=== PATIENT | female | born 1995 | race African-American/Black ===

== ENCOUNTER 2020-02-29 09:38 | Emergency (ER) | payer MEDICAID, SELFPAY ==
[2020-02-29 09:42] VITALS: BP 138/87; PULSE 103; RESP 18; TEMP 36.8; O2SAT 100
[2020-02-29 10:17] LABS: Basophils Percent Auto 0.2 % (0.2-1.2); Eosinophils Absolute Auto 0.2 K/mm3 (0-0.3); Eosinophils Percent Auto 0.9 % (0-4.4); Immature Granulocyte Percent A 0.6 % (0-0.5); Lymphocytes Absolute Auto 2.12 K/mm3 (0.9-3.2); Lymphocytes Percent Auto 12.5 % (18.3-44.2); Mean Corpuscular HGB Conc 31.3 g/dl (32-36); Mean Corpuscular Hemoglobin 25.5 pg (26-34); Mean Corpuscular Volume 81.6 fl (80-100); Mean Platelet Volume 11.9 fl (7.4-10.4); Monocytes Absolute Auto 0.7 K/mm3 (0.1-0.6); Monocytes Percent Auto 3.8 % (2.6-8.5); Neutrophils Absolute Auto 13.8 K/mm3 (1.3-6.7); Platelet Count Result 228 k/mm3 (150-375); Red Blood Count 3.92 M/mm3 (4.2-5.4); Red Cell Distribution Width 19.9 % (11.5-14.5); White Blood Count 16.9 K/mm3 (4.5-10.0)
[2020-02-29 10:24] LABS: Add Urine Microscopic? YES; Appearance Urine Cloudy (Clear); Bilirubin Urine Negative (Negative); Blood Urine 3+ (Negative); Color Urine Red (Yellow); Glucose Urine UA Negative (Negative); Ketones Urine Negative (Negative); Leukocyte Esterase Ur 2+ LEU/UL (Negative); Mucus Urine Few /lpf; Nitrate Urine Negative (Negative); Protein Urine 3+ mg/dL (Negative); RBC Urine >75 /hpf (0-2); Specific Grav Ur 1.016 (1.001-1.035); Squamous Epithelial Cell Urine Many /hpf (Few); Urobilinogen Urine Negative mg/dL (<2.0); WBC Urine >75 /hpf
[2020-02-29 10:25] VITALS: BP 108/58; PULSE 78
[2020-02-29 10:26] VITALS: BP 112/68; BP 115/65; PULSE 80; PULSE 87
--- NOTE | 2020-02-29 11:03 | ED.PREGNANCY ---
HPI - General Chief complaint: Vaginal Bleeding Stated complaint: , bleeding Time Seen by Provider: 02/29/20 10:32 History of Present Illness HPI Narrative: Patient presents for gush of blood and fluid from her vagina today. She suspects that she is since her last period was 6 weeks ago, on January 18. She is G6, P4 Ab1. She had one miscarriage before. Her pelvic cramping is a 5 out of 10. 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 She has not been sick otherwise. Complaint: vaginal bleeding Onset (ago): hour(s) Pain Consistency: constant Location: pelvis Severity: moderate Quality: Cramping Relieving factors: none Exacerbating factors: none Associated symptoms: vaginal bleeding Vaginal discharge: felt water broke Vaginal bleeding: heavy Related Data Allergies Allergy/AdvReac Type Severity Reaction Status Date / Time No Known Allergies Allergy Verified 02/29/20 09:51 Review of Systems Review of Systems: Narrative: CONSTITUTIONAL: Denies fever, chills, or sweats. EYES: Denies visual changes, redness, or discharge. ENT: Denies rhinorrhea, congestion, sore throat, or otalgia. CARDIOVASCULAR: Denies chest pain, palpitations, or edema. RESPIRATORY: Denies cough or dyspnea. GASTROINTESTINAL: Denies abdominal pain, nausea, vomiting, or diarrhea. GENITOURINARY: Denies dysuria or hematuria. SKIN: Denies rash or itching. MUSCULOSKELETAL: Denies back pain, joint pain, or myalgia. NEUROLOGIC: Denies headache, numbness, or weakness. PSYCHIATRIC: Denies anxiety or depression. All systems reviewed & are unremarkable except as noted in HPI and below PMFSH Social History Social History (Updated 02/29/20 @ 11:26 by Quita Montana MD) Smoking status: Never smoker Alcohol intake: current Substance use: never Gender identity (if verbalized by the patient): Female Exam Narrative: Exam Narrative: GENERAL: Well-appearing, well-nourished, and in no acute distress. HEAD: Normocephalic, atraumatic. EYES: PERRLA and EOMI. ENT: Nares clear, no rhinorrhea or epistaxis. Mucous membranes moist. NECK: Supple. CHEST: Clear to auscultation. No respiratory distress. HEART: Regular rate and rhythm. No murmur heard. Normal peripheral pulses. ABDOMEN: Soft, nontender, nondistended, normal active bowel sounds. EXTREMITIES: Normal range of motion. No edema. SKIN: Warm, dry, no rash. NEURO: No focal deficits. Alert and oriented x3. PSYCH: Normal mood and affect. : External Female Exam: normal external appearance Speculum Exam - Vagina: normal appearance of the vagina and vaginal bleeding (Scant) Course Course Emergency Course: The temperature recorded at 103 seems erroneous since the patient does not report any fever. The pulse of 18 was probably meant to be 81 and has been stable since she has been here. Vital Signs Vital signs: Vital Signs Temperature 103 F H 02/29/20 09:42 Pulse Rate 18 L 02/29/20 09:42 Respiratory Rate 18 02/29/20 09:42 Blood Pressure 138/87 02/29/20 09:42 Pulse Oximetry 100 02/29/20 09:42 Temperature 103 F H 02/29/20 09:42 Pulse Rate 87 02/29/20 10:26 Respiratory Rate 18 02/29/20 09:42 Blood Pressure 115/65 02/29/20 10:26 Pulse Oximetry 100 02/29/20 09:42 MDM - OB/Uterine Contractions Lab Data Result diagrams: 02/29/20 09:57 Labs: Lab Results 02/29/20 02/29/20 02/29/20 Range/Units 09:57 09:57 09:57 WBC 16.9 H (4.5-10.0) K/mm3 RBC 3.92 L (4.2-5.4) M/mm3 Hgb 10.0 L (12.0-15.0) g/dL Hct 32.0 L (37.0-47.0) % MCV 81.6 (80-100) fl MCH 25.5 L (26-34) pg MCHC 31.3 L (32-36) g/dl RDW 19.9 H (11.5-14.5) % Plt Count 228 (150-375) k/mm3 MPV 11.9 H (7.4-10.4) fl Immature Gran % (Auto) 0.6 H (0-0.5) % Neut % (Auto) 82.0 H (45.5-73.1) % Lymph % (Auto) 12.5 L (18.3-44.2) % [place] % (Auto) 3.8 (2.6-8.5) % Eos % (Auto) 0.9 (0-4.4) % Baso % (Auto) 0.2 (0.2-1.2)
[2020-02-29] MEDS: IBUPROFEN 600 MG TABLET PO (11:36)
[2020-02-29 12:10] VITALS: BP 103/58; PULSE 87; RESP 18; TEMP 36.7; O2SAT 99
== END 2020-02-29 12:15 | disposition home or self-care (01) ==
PROVIDERS: Emergency Provider Emergency Medicine
DX: O03.9 Complete or unspecified spontaneous abortion without complication (principal)
CPT/HCPCS: 36415; 81001; 81025; 84702; 85025; 85461; 87086; 99284; A9270

== ENCOUNTER 2020-03-02 08:10 | Day surgery (SDC) | payer MEDICAID, SELFPAY ==
[2020-03-02] VITALS (10 sets, daily range): BP systolic 100–121; BP diastolic 53–73; PULSE 58–104; RESP 12–18; TEMP 36.9–37.4; O2SAT 97–99
--- NOTE | 2020-03-02 08:18 | ED.PREGNANCY ---
HPI - General Chief complaint: [employer] Stated complaint: Miscarriage Time Seen by Provider: 03/02/20 08:17 History of Present Illness HPI Narrative: Patient presents with her mother for miscarriage. She was seen here 2 days ago for possible miscarriage. She says her last menstrual period was January 18 which would make her about 5 weeks. There is a fetus still attached to the umbilical cord, between her legs. She has not yet delivered the placenta. Her pain is 6 out of 10. MD Complaint: contractions Onset (ago): hour(s) Pain Consistency: constant Location: pelvis Severity: moderate Quality: Cramping Related Data Allergies Allergy/AdvReac Type Severity Reaction Status Date / Time No Known Allergies Allergy Verified 03/02/20 08:20 Review of Systems Review of Systems: Narrative: CONSTITUTIONAL: Denies fever, chills, or sweats. EYES: Denies visual changes, redness, or discharge. ENT: Denies rhinorrhea, congestion, sore throat, or otalgia. CARDIOVASCULAR: Denies chest pain, palpitations, or edema. RESPIRATORY: Denies cough or dyspnea. GASTROINTESTINAL: Denies abdominal pain, nausea, vomiting, or diarrhea. GENITOURINARY: Denies dysuria or hematuria. SKIN: Denies rash or itching. MUSCULOSKELETAL: Denies back pain, joint pain, or myalgia. NEUROLOGIC: Denies headache, numbness, or weakness. PSYCHIATRIC: Denies anxiety or depression. [facility] Social History Social History Smoking status: Never smoker Alcohol intake: current Substance use: never Gender identity (if verbalized by the patient): Female Exam Narrative: Exam Narrative: GENERAL: Well-appearing, well-nourished, and in no acute distress. Thin. HEAD: Normocephalic, atraumatic. EYES: PERRLA and EOMI. ENT: Nares clear, no rhinorrhea or epistaxis. Mucous membranes moist. NECK: Supple. CHEST: Clear to auscultation. No respiratory distress. HEART: Regular rate and rhythm. No murmur heard. Normal peripheral pulses. ABDOMEN: Soft, nontender, nondistended, normal active bowel sounds. EXTREMITIES: Normal range of motion. No edema. SKIN: Warm, dry, no rash. NEURO: No focal deficits. Alert and oriented x3. PSYCH: Normal mood and affect. Course Consultations Consultation #1: Call Dr. Molina, her OB, and he will call back when he is out of the OR. Dr. Barby Holt called back and will prepare to take the patient to the OR for D&C. Date: 03/02/20 Time: 08:22 Vital Signs Vital signs: Vital Signs Temperature 99.3 F 03/02/20 08:14 Pulse Rate 104 H 03/02/20 08:14 Respiratory Rate 18 03/02/20 08:14 Blood Pressure 121/72 03/02/20 08:14 Pulse Oximetry 98 03/02/20 08:14 Temperature 99.3 F 03/02/20 08:14 Pulse Rate 87 03/02/20 09:48 Respiratory Rate 18 03/02/20 09:48 Blood Pressure 101/62 03/02/20 09:48 Pulse Oximetry 99 03/02/20 09:48 MDM - OB/Uterine Contractions MDM Narrative Medical decision making narrative: The patient had a stillborn fetus of about 12 to 14 weeks. This does not correlate with the history of the last menstrual period being January 18. I suspect she had demise at that time, and her low hCG reflects a descending number. Dr. Barby Holt said the fetus was about 14 weeks, and took the patient to the OR for delivery of the placenta and any retained products. The patient's white count increased to 20,000, and so got IV antibiotics of Zosyn 1 dose. Her mother was able to accompany her to the operating department. She will be admitted for observation after that. Medical Records Attestation: I reviewed the patient's medical records. Lab Data Attestation: I reviewed the patient's lab results. Result diagrams: 03/02/20 08:38 03/02/20 08:38 Labs: Lab Results 03/02/20 03/02/20 03/02/20 Range/Units 08:38 08:38 08:38 WBC 20.3 H (4.5-10.0) K/mm3 RBC 3.55 L (4.2-5.4) M/mm3 Hgb 9.1 L (12.0-15
[2020-03-02] MEDS: MORPHINE SULFATE 2 MG/ML INJ IV PUSH (08:23)
[2020-03-02] MEDS: SODIUM CHLORIDE 0.9% IV 1,000 ML 150 ML IV CONT (08:24)
[2020-03-02] MEDS: MORPHINE SULFATE 4 MG/ML INJ IV PUSH (08:41)
[2020-03-02 08:43] LABS: Basophils Percent Auto 0.1 % (0.2-1.2); Eosinophils Absolute Auto 0.1 K/mm3 (0-0.3); Eosinophils Percent Auto 0.2 % (0-4.4); Hematocrit 29.2 % (37.0-47.0); Hemoglobin 9.1 g/dL (12.0-15.0); Immature Granulocyte Absolute 0.28 K/mm3 (0.00-0.031); Immature Granulocyte Percent A 1.4 % (0-0.5); Lymphocytes Absolute Auto 1.61 K/mm3 (0.9-3.2); Lymphocytes Percent Auto 7.9 % (18.3-44.2); Mean Corpuscular HGB Conc 31.2 g/dl (32-36); Mean Corpuscular Hemoglobin 25.6 pg (26-34); Mean Corpuscular Volume 82.3 fl (80-100); Mean Platelet Volume 12.2 fl (7.4-10.4); Monocytes Absolute Auto 1.2 K/mm3 (0.1-0.6); Monocytes Percent Auto 5.7 % (2.6-8.5); Neutrophils Absolute Auto 17.2 K/mm3 (1.3-6.7); Neutrophils Percent Auto 84.7 % (45.5-73.1); Platelet Count Result 205 k/mm3 (150-375); Red Blood Count 3.55 M/mm3 (4.2-5.4); Red Cell Distribution Width 19.6 % (11.5-14.5); White Blood Count 20.3 K/mm3 (4.5-10.0)
--- NOTE | 2020-03-02 08:45 | PC.NURSE ---
Pt states that chambers she used bathroom to urinate she passed fetus. male fetus the size of adult hand remains attached to mother by cord. placenta has not been delivered at this time. mother given Share folder. mother declines Share support group. Mother and family do not know at this time how they wish to proceed with remains. maintainability engineer has been contacted and given info. pt informed to remain npo.
[2020-03-02 08:55] LABS: Alanine Aminotransferase 10 U/L (4-35); Albumin Level 3.9 g/dL (3.5-5.1); Alkaline Phosphatase 102 U/L (38-126); Aspartate Amino Transferase 19 U/L (14-36); Bilirubin,Total 0.2 mg/dL (0.2-1.3); Blood Urea Nitrogen 10 mg/dL (7-17); Calcium 8.6 mg/dL (8.4-10.2); Carbon Dioxide 24 mmol/L (22-30); Chloride 103 mmol/L (98-107); Estimated CRCL calculation 126 ml/min; Estimated Glomerular Filt Rate > 60; Glucose 104 mg/dL (65-105); Potassium 3.4 mmol/L (3.4-5.0); Sodium 134 mmol/L (137-145)
--- NOTE | 2020-03-02 09:01 | PC.NURSE ---
Spoke with Roxanne at [employer] office. Notified of loss ~ 16-18 weeks.
--- NOTE | 2020-03-02 09:24 | P.HP_ITS ---
H&P: HPI History of Present Illness Chief complaint: Miscarriage Narrative: Tim Beck is a 24 year old female who is admitted after paasing an approximately 12 week demise. placenta remains. Review of Systems Review of Systems: All systems reviewed & are unremarkable except as noted in HPI and below [facility] Social History Social History Smoking status: Never smoker Alcohol intake: current Substance use: never Gender identity (if verbalized by the patient): Female Meds Home Medications and Allergies Home Medications Medication Instructions Recorded Confirmed Type naproxen sodium [Anaprox DS] 550 mg PO BID PRN #10 tablet 02/29/20 Rx Allergies Allergy/AdvReac Type Severity Reaction Status Date / Time No Known Allergies Allergy Verified 03/02/20 08:20 Vital Signs Vital Signs - 24 hr 03/02/20 08:14 Temperature 99.3 F Pulse Rate 104 H Respiratory Rate 18 Blood Pressure 121/72 Pulse Oximetry 98 Exam Const: General: no acute distress Eyes: General: appearance normal, both eyes and all related structures Neck: Neck: supple and no JVD Thyroid: thyroid normal Resp: Effort & Inspection: normal respiratory effort Auscultation: clear to auscultation bilaterally Cardio: Rate: regular rate Rhythm: regular rhythm GI: Inspection: non-distended GI Palp: Yes Soft to palpation, No Tenderness to palpation present (GI) and No Guarding due to palpation present (GI) Auscultation: normal bowel sounds : External Female Exam: normal external appearance Speculum Exam - Vagina: normal appearance of the vagina Bimanual exam- vagina & uterus: other (placenta remains in cervix) Skin: General skin exam: no rashes or lesions noted Extrem: General: normal to inspection and no edema Psych: Mental Status: mental status grossly normal Affect: normal affect H&P: Results Labs Labs: Short CBC 03/02/20 Range/Units 08:38 WBC 20.3 H (4.5-10.0) K/mm3 Hgb 9.1 L (12.0-15.0) g/dL Hct 29.2 L (37.0-47.0) % Plt Count 205 (150-375) k/mm3 [facility] 03/02/20 08:38 Sodium 134 L Potassium 3.4 Chloride 103 Carbon Dioxide 24 BUN 10 Creatinine 0.50 L Glucose 104 Calcium 8.6 Liver Function 03/02/20 Range/Units 08:38 Total Bilirubin 0.2 (0.2-1.3) mg/dL AST 19 (14-36) U/L ALT 10 (4-35) U/L Alkaline Phosphatase 102 (38-126) U/L Albumin 3.9 (3.5-5.1) g/dL Assessment and Plan Additional Plan impression:retained placenta Plan:suction d and c
--- NOTE | 2020-03-02 09:38 | PC.NURSE ---
pastoral care spoke with pt and pt's family. they have decided to utilize Share. pt remains undecided on disposition of fetus.
--- NOTE | 2020-03-02 10:07 | WPDANESEPP ---
Anes - Eval Pre Procedure Procedure: Suction D and C Operation Date: 03/02/20 10:30 Proposed Procedures p SUCTION DILATATION AND CURETTAGE - Solo Desai MD Date/Time: 03/02/20 10:07 Pre Op Diagnosis: Miscarriage Patient Data Age: 24 Gender: F Height: 5 ft 5 in Weight: 54.4 kg Last Vital Signs Temp 99.3 F 03/02/20 08:14 Pulse 87 03/02/20 09:48 Resp 18 03/02/20 09:48 BP 101/62 03/02/20 09:48 Pulse Ox 99 03/02/20 09:48 Allergies Allergy/AdvReac Type Severity Reaction Status Date / Time No Known Allergies Allergy Verified 03/02/20 08:20 Home Medications Medication Instructions Recorded Confirmed Type naproxen sodium [Anaprox DS] 550 mg PO BID PRN #10 tablet 02/29/20 Rx hydrocodone-acetaminophen [[place]] 1 tablet PO Q4H PRN #20 tablet 03/02/20 Rx Laboratory Tests 03/02/20 03/02/20 03/02/20 08:38 08:38 08:38 WBC 20.3 K/mm3 H K/mm3 (4.5-10.0) RBC 3.55 M/mm3 L M/mm3 (4.2-5.4) Hgb 9.1 g/dL L g/dL (12.0-15.0) Hct 29.2 % L % (37.0-47.0) MCV 82.3 fl fl (80-100) MCH 25.6 pg L pg (26-34) MCHC 31.2 g/dl L g/dl (32-36) RDW 19.6 % H % (11.5-14.5) Plt Count 205 k/mm3 k/mm3 (150-375) MPV 12.2 fl H fl (7.4-10.4) Immature Gran % (Auto) 1.4 % H % (0-0.5) Neut % (Auto) 84.7 % H % (45.5-73.1) Lymph % (Auto) 7.9 % L % (18.3-44.2) [place] % (Auto) 5.7 % % (2.6-8.5) Eos % (Auto) 0.2 % % (0-4.4) Baso % (Auto) 0.1 % L % (0.2-1.2) Lymph # (Auto) 1.61 K/mm3 K/mm3 (0.9-3.2) [place] # (Auto) 1.2 K/mm3 H K/mm3 (0.1-0.6) Eos # (Auto) 0.1 K/mm3 K/mm3 (0-0.3) Baso # (Auto) 0.0 K/mm3 K/mm3 (0.0-0.1) Abs Immat Gran (auto) 0.28 K/mm3 H K/mm3 (0.00-0.031) Absolute Neuts (auto) 17.2 K/mm3 H K/mm3 (1.3-6.7) Absolute Nucleated RBC 0.0 K/mm3 K/mm3 (0.0-0.012) Nucleated RBC % 0.0 % % (0.0-0.2) Sodium 134 mmol/L L mmol/L (137-145) Potassium 3.4 mmol/L mmol/L (3.4-5.0) Chloride 103 mmol/L mmol/L (98-107) Carbon Dioxide 24 mmol/L mmol/L (22-30) BUN 10 mg/dL mg/dL (7-17) Creatinine 0.50 mg/dL L mg/dL (0.7-1.0) Estim Creat Clear Calc 126 ml/min ml/min Estimated GFR > 60 (59 - ) Glucose 104 mg/dL mg/dL (65-105) Calcium 8.6 mg/dL mg/dL (8.4-10.2) Total Bilirubin 0.2 mg/dL mg/dL (0.2-1.3) AST 19 U/L U/L (14-36) ALT 10 U/L U/L (4-35) Alkaline Phosphatase 102 U/L U/L (38-126) Total Protein 7.0 g/dL g/dL (6.3-8.2) Albumin 3.9 g/dL g/dL (3.5-5.1) Beta HCG, Quant 36358.00 mIU/ML mIU/ML Patient hx anesthesia problems: none Family hx anesthesia problems: none PMFSH Past Medical History Medical History Miscarriage Social History Social History Smoking status: Never smoker Alcohol intake: current Substance use: never Gender identity (if verbalized by the patient): Female Exam Day of Procedure 03/02/20 10:07 Patient weight: normal Lungs: clear to auscultation Airway: Mallampati scale class 1 Neurological: alert and oriented
--- NOTE | 2020-03-02 10:10 | WPDANESEFPP ---
Anes - Eval Final PreProcedure Day of Procedure 03/02/20 10:10 Patient weight: normal Heart: regular rate and rhythm Lungs: clear to auscultation Airway: Mallampati scale class II Neurological: alert and oriented Last oral intake: >/= 8 hours ASA classification: II Emergent: yes Anesthetic plan: proceed Anesthesia type and monitoring: general GIVS and standard monitoring Informed Consent: The patient's anesthetic plan and its attendant risks and benefits were discussed with the patient/family/POA. Questions were solicited and answers provided to the satisfaction of the patient/family/POA.
[2020-03-02] MEDS: LACTATED RINGERS 1,000 ML 30 ML IV CONT (10:15)
--- NOTE | 2020-03-02 10:50 | PM.PROC ---
Procedure Note - Detailed Date of procedure: 03/02/20 Pre-op diagnosis: Miscarriage Surgeon: Solo Desai MD Postop diagnosis: Retained placenta following demise delivery of a mid trimester Procedure: Suction dilatation curettage Findings: Retained placenta in a EBL: 250cc Anesthesia: IV sedation/paracervical block Complications: None Description of procedure: The patient was prepped and draped in the normal sterile fashion placed in the dorsal lithotomy position. Under excellent IV sedation a weighted speculum was placed in posterior fornix vagina. Anterior lip of the cervix grasped with a single-tooth tenaculum. 2.5cc of 1% xylocaine anesthesia placed at 2:49 a.m. Par[place] in the cervix uterus sounded to 14cm. The 12. Suction curette was then placed through the dilated cervix and the placenta removed in piecemeal fashion. With a good grating sound was heard, no further tissue removed. The instruments removed. All sponge, needle, instrument counts were correct. She did not require RhoGAM if she is Rh positive. There were no immediate complications
--- NOTE | 2020-03-02 13:01 | SUR.PHASEII ---
1200 - pt in room resting in recliner chair. pt's mom at bedside. pt holding fetus brought to her by May Coronado. 1300 - pt remains in room resting. offers no needs or wants at this time.
--- NOTE | 2020-03-02 14:27 | PC.NURSE ---
Called to ER this a.m. to meet pt after her admission because of her home delivery of approximate 12 week gestation fetus. Pt's mother with her. Share information had been presented, and pt signed consent for Share f/u after discharge from hospital. Lamination Technician had visited. Pt had to go to surgery for a D&C. Met with pt and her mother after pt's surgery. Pt chose Home disposition for her baby, and requested [facility] be contacted. This was done and they agreed to care for this baby and family. certificate information completed, Release of Body consent signed. Pt assured of f/u and support through Share. Pt states she is in shock, as she did not realize she was until 2 days ago when her water broke, and she came in to the ER. Today, baby born at home. Pt has not been emotional, but did take time to hold her baby and look at her baby. Pt did name her baby. Pt's mother present and seems supportive. Will contact pt soon as committed to her. MTS notified. ER nurse reports taxi driver supervisor was notified.
== END 2020-03-02 14:30 | disposition home or self-care (01) ==
LOC: ANHED 10:00 → ANHSURGERY 10:02
PROVIDERS: Emergency Provider Emergency Medicine; Visit Provider Obstetrics & Gynecology
PROC: (CPT 59812; principal; 2020-03-02 10:30)
DX: O03.4 Incomplete spontaneous abortion without complication (principal); D72.829 Elevated white blood cell count, unspecified
CPT/HCPCS: 59812; 36415; 80053; 84702; 85025; 88305; 88307; 96361; 96365; 96375; 99285; A9270; J2001; J2270; J2405; J2543; J2590; J2704; J3010; J7030; J7120

== ENCOUNTER 2020-03-24 00:55 | Emergency (ER) | payer MEDICAID, SELFPAY ==
[2020-03-24 00:59] VITALS: BP 104/74; PULSE 107; RESP 16; TEMP 36.8; O2SAT 100
[2020-03-24 02:17] LABS: Add Urine Microscopic? YES; Appearance Urine Clear (Clear); Bilirubin Urine Negative (Negative); Blood Urine 1+ (Negative); Color Urine Yellow (Yellow); Glucose Urine UA Negative (Negative); Ketones Urine Negative (Negative); Leukocyte Esterase Ur 1+ LEU/UL (Negative); Mucus Urine Few /lpf; Nitrate Urine Negative (Negative); Protein Urine 1+ mg/dL (Negative); RBC Urine 0-2 /hpf (0-2); Specific Grav Ur 1.025 (1.001-1.035); Squamous Epithelial Cell Urine Occasional /hpf (Few); WBC Urine 31-50 /hpf
--- NOTE | 2020-03-24 03:14 | ED.FEMALEGU ---
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 Patient states she had a D and C performed on 03/02/20 after suffering a miscarriage. She had vaginal bleeding for 2 weeks afterwards and she states it stopped 1 week ago. She states she developed abnormal vaginal discharge 2 days ago and she reports greenish discharge with mild odor. She also has pelvic pain and back pain. She denies fever, chills, nausea or vomiting. Dr. Barby Holt performed her D and C. Related Data Allergies Allergy/AdvReac Type Severity Reaction Status Date / Time No Known Allergies Allergy Verified 03/02/20 10:47 Review of Systems Review of Systems: All systems reviewed & are unremarkable except as noted in HPI and below Constitutional: Constitutional: Denies chills and Denies fatigue Gastrointestinal: Gastrointestinal: Reports abdominal pain, Denies diarrhea and Denies vomiting Genitourinary: Genitourinary: Denies hematuria, Denies nocturia, Reports pelvic pain and Reports vaginal discharge Musculoskeletal: Musculoskeletal: Reports back pain PMFSH Social History Social History Smoking status: Never smoker Alcohol intake: current Substance use: never Gender identity (if verbalized by the patient): Female Exam Narrative: Exam Narrative: GENERAL: Well-appearing, well-nourished, and in no acute distress. HEAD: Normocephalic, atraumatic EYES: PERRLA and EOMI, conjunctiva clear without discharge THROAT:Mucous membranes moist, Oropharynx normal without erythema, exudate, peritonsillar swelling or fluctuance NECK: Supple, without lymphadenopathy or mass RESPIRATORY: No respiratory distress, Airway patent, Respirations non-labored, Clear to auscultation without rales, rhonchi or wheeze HEART: Regular rate and rhythm. No murmur heard. Normal peripheral pulses. ABDOMEN: Soft, suprapubic, nondistended, normal active bowel sounds. No masses. No rebound or guarding, No organomegaly. EXTREMITIES: No edema, normal strength with full range of motion. SKIN: Warm, dry, normal color without rash NEURO: Alert and oriented x3. CN 2-12 grossly intact. No focal deficits. PSYCH: Normal mood and affect. : Speculum Exam - Vagina: abnormal vaginal discharge yellow Speculum Exam - Cervix: Cervical tenderness present Bimanual exam- vagina & uterus: Cervical tenderness present and cervical motion tenderness Course Consultations Consultation #1: I have discussed case with Dr. Barby Holt. PAtient does not appear toxic. He states patient can be started on treatment for PID, gonorrhea and chlamydia. He can follow up with patient as outpatient. Date: 03/24/20 Time: 04:34 Vital Signs Vital signs: Vital Signs Temperature 98.3 F 03/24/20 00:59 Pulse Rate 107 H 03/24/20 00:59 Respiratory Rate 16 03/24/20 00:59 Blood Pressure 104/74 03/24/20 00:59 Pulse Oximetry 100 03/24/20 00:59 Temperature 98.2 F 03/24/20 05:21 Pulse Rate 69 03/24/20 05:21 Respiratory Rate 14 03/24/20 05:21 Blood Pressure 107/61 03/24/20 05:21 Pulse Oximetry 99 03/24/20 05:21 MDM - Female Genitourinary Lab Data Result diagrams: 03/24/20 03:23 03/24/20 03:23 Labs: Lab Results 03/24/20 03/24/20 03/24/20 Range/Units 02:02 03:19 03:19 WBC (4.5-10.0) K/mm3 RBC (4.2-5.4) M/mm3 Hgb (12.0-15.0) g/dL Hct (37.0-47.0) % MCV (80-100) fl MCH (26-34) pg MCHC (32-36) g/dl RDW (11.5-14.5) % Plt Count (150-375) k/mm3 MPV (7.4-10.4) fl Immature Gran % (Auto) (0-0.5) % Neut % (Auto) (45.5-73.1) % Lym
[2020-03-24 03:32] LABS: Basophils Percent Auto 0.1 % (0.2-1.2); Eosinophils Absolute Auto 0.1 K/mm3 (0-0.3); Eosinophils Percent Auto 0.6 % (0-4.4); Hematocrit 29.9 % (37.0-47.0); Immature Granulocyte Percent A 0.7 % (0-0.5); Lymphocytes Percent Auto 11.9 % (18.3-44.2); Mean Corpuscular HGB Conc 30.1 g/dl (32-36); Mean Corpuscular Hemoglobin 24.5 pg (26-34); Mean Corpuscular Volume 81.5 fl (80-100); Mean Platelet Volume 11.3 fl (7.4-10.4); Monocytes Absolute Auto 0.8 K/mm3 (0.1-0.6); Monocytes Percent Auto 5.2 % (2.6-8.5); Neutrophils Absolute Auto 12.3 K/mm3 (1.3-6.7); Neutrophils Percent Auto 81.5 % (45.5-73.1); Platelet Count Result 279 k/mm3 (150-375); Red Blood Count 3.67 M/mm3 (4.2-5.4); Red Cell Distribution Width 17.8 % (11.5-14.5); White Blood Count 15.1 K/mm3 (4.5-10.0)
[2020-03-24 03:46] LABS: Alanine Aminotransferase 11 U/L (4-35); Albumin Level 3.8 g/dL (3.5-5.1); Alkaline Phosphatase 82 U/L (38-126); Aspartate Amino Transferase 19 U/L (14-36); Bilirubin,Total 0.4 mg/dL (0.2-1.3); Blood Urea Nitrogen 4 mg/dL (7-17); Calcium 8.4 mg/dL (8.4-10.2); Carbon Dioxide 26 mmol/L (22-30); Chloride 103 mmol/L (98-107); Estimated Glomerular Filt Rate > 60; Glucose 102 mg/dL (65-105); Potassium 3.1 mmol/L (3.4-5.0); Sodium 135 mmol/L (137-145)
[2020-03-24 03:53] VITALS: BP 101/53; PULSE 75; RESP 14; TEMP 36.6; O2SAT 98
[2020-03-24 04:03] LABS: Beta HCG Quantitative 28.94 mIU/ML
[2020-03-24] MEDS: cefTRIAXone 250 MG VIAL IM (04:51)
[2020-03-24] MEDS: AZITHROMYCIN 250 MG TABLET 1000 MG PO (04:51)
[2020-03-24 05:21] VITALS: BP 107/61; PULSE 69; RESP 14; TEMP 36.8; O2SAT 99
== END 2020-03-24 05:24 | disposition home or self-care (01) ==
PROVIDERS: Emergency Provider General Practice
DX: N73.9 Female pelvic inflammatory disease, unspecified (principal)
CPT/HCPCS: 36415; 80053; 81001; 81025; 84702; 85025; 87070; 87077; 87086; 87491; 87591; 87808; 96365; 96372; 99284; A9270; J0131; J0696

== ENCOUNTER 2020-03-27 01:26 | Day surgery (SDC) | payer MEDICAID, SELFPAY ==
--- NOTE | 2020-03-26 16:08 | PM.IMHP ---
H&P: HPI History of Present Illness Chief complaint: Retain Products from Demise At 15 Weeks Narrative: iTm Beck is a 24 year old female Status post 15 week loss who is admitted for suction D&C. This is previous pregnancies, this 1 and in the 15 week miscarriage she underwent D and C she has bled since and ultrasound proves retained placenta. Risks and benefits of suction D and C reviewed Review of Systems Review of Systems: All systems reviewed & are unremarkable except as noted in HPI and below PMFSH Past Medical History Medical History Miscarriage Social History Social History Smoking status: Never smoker Alcohol intake: current Substance use: never Gender identity (if verbalized by the patient): Female Meds Home Medications and Allergies Home Medications Medication Instructions Recorded Confirmed Type naproxen sodium [Anaprox DS] 550 mg PO BID PRN #10 tablet 02/29/20 03/02/20 Rx hydrocodone-acetaminophen [[place]] 1 tablet PO Q4H PRN #20 tablet 03/02/20 Rx doxycycline monohydrate 100 mg PO BID 14 Days #28 cap 03/24/20 Rx Allergies Allergy/AdvReac Type Severity Reaction Status Date / Time No Known Allergies Allergy Verified 03/02/20 10:47 Exam Const: General: no acute distress Eyes: General: appearance normal, both eyes and all related structures Neck: Neck: supple and no JVD Thyroid: thyroid normal Resp: Effort & Inspection: normal respiratory effort Auscultation: clear to auscultation bilaterally Cardio: Rate: regular rate Rhythm: regular rhythm GI: Inspection: non-distended GI Palp: Yes Soft to palpation, No Tenderness to palpation present (GI) and No Guarding due to palpation present (GI) Auscultation: normal bowel sounds : External Female Exam: normal external appearance Speculum Exam - Vagina: vaginal bleeding Speculum Exam - Cervix: Cervical os open Bimanual exam- vagina & uterus: non-tender and enlarged Skin: General skin exam: no rashes or lesions noted Extrem: General: normal to inspection and no edema Psych: Mental Status: mental status grossly normal Affect: normal affect Assessment and Plan Additional Plan impression: Retained placenta Plan: Suction dilatation curettage
[2020-03-26 17:03] VITALS: BMI 20.1
--- NOTE | 2020-03-27 06:36 | WPDHPUPDATE1 ---
History and Physical Update Update Date/Time: 03/27/20 06:36 History and Physical has been reviewed, including an updated exam of the patient. There are NO changes in the patient's condition. Risks, benefits, and alternatives have been discussed and questions answered. Patient agrees to proceed with procedure.
[2020-03-27 11:00] VITALS: BP 109/62; PULSE 83; RESP 18; TEMP 36.5; O2SAT 100
--- NOTE | 2020-03-27 11:29 | WPDANESEPPF ---
Anes - Initial Pre Proc Eval Procedure: Operation Date: 03/27/20 12:30 Proposed Procedures p Suction Dilation and Curettage - Solo Desai MD Date/Time: 03/27/20 11:29 Surgeon: Solo Desai MD Pre Op Diagnosis: Retain Products from Demise At 15 Weeks Patient Data Age: 24 Gender: F Height: 5 ft 5 in Weight: 55 kg Allergies Allergy/AdvReac Type Severity Reaction Status Date / Time No Known Allergies Allergy Verified 03/02/20 10:47 Home Medications Medication Instructions Recorded Confirmed Type naproxen sodium [Anaprox DS] 550 mg PO BID PRN #10 tablet 02/29/20 03/02/20 Rx hydrocodone-acetaminophen [[place]] 1 tablet PO Q4H PRN #20 tablet 03/02/20 Rx doxycycline monohydrate 100 mg PO BID 14 Days #28 cap 03/24/20 Rx hydrocodone-acetaminophen [[place]] 1 tablet PO Q4H PRN #20 tablet 03/27/20 Rx Patient hx anesthesia problems: none Family hx anesthesia problems: none [facility] Past Medical History Medical History (Updated 03/27/20 @ 11:29 by Bruce Rojas MD) Healthy adult Miscarriage Social History Social History Smoking status: Never smoker Alcohol intake: current Substance use: never Gender identity (if verbalized by the patient): Female Anes - Eval Final PreProcedure Day of Procedure 03/27/20 11:29 Patient weight: normal Heart: regular rate and rhythm Lungs: clear to auscultation Airway: Mallampati scale class II Neurological: alert and oriented Last oral intake: >/= 8 hours ASA classification: I Emergent: no Anesthetic plan: proceed Anesthesia type and monitoring: general GIVS and standard monitoring Informed Consent: The patient's anesthetic plan and its attendant risks and benefits were discussed with the patient/family/POA. Questions were solicited and answers provided to the satisfaction of the patient/family/POA.
[2020-03-27] MEDS: LACTATED RINGERS 1,000 ML 30 ML IV CONT (11:30)
[2020-03-27] MEDS: KETOROLAC 30 MG/ML VIAL (*BKC) IV PUSH (12:26)
--- NOTE | 2020-03-27 12:29 | PM.PROC ---
Procedure Note - Detailed Date of procedure: 03/27/20 Pre-op diagnosis: Retain Products from Demise At 15 Weeks Surgeon: Solo Desai MD Postop diagnosis: Retained products of conception from demise at 15 weeks Procedure: Suction dilatation curettage EBL: 25cc Anesthesia: IV sedation and local Complications: Findings: Small piece of retained placenta Description of procedure: The patient was prepped draped in the normal sterile fashion and placed in the dorsal lithotomy position. Under excellent IV sedation weighted speculum placed in posterior fornix of vagina. Anterior lip of the cervix grasped with a single-tooth tenaculum. Uterus sounded to 10cm. Serial dilatation with fragmented dilators performed. This was followed by passes the 10. Suction curette piece placental tissue. A good grating was heard. The instruments. All sponge, needle, instrument counts were correct. There were no immediate complications
[2020-03-27 12:35] VITALS: BP 93/48; PULSE 63; RESP 10; O2SAT 100
[2020-03-27 13:05] VITALS: BP 101/64; PULSE 52; RESP 14
[2020-03-27 13:35] VITALS: BP 106/80; PULSE 76; RESP 12
== END 2020-03-27 14:04 | disposition home or self-care (01) ==
PROVIDERS: Visit Provider Obstetrics & Gynecology
PROC: (CPT 59821; principal; 2020-03-27 12:30)
DX: O02.1 Missed abortion (principal)
CPT/HCPCS: 59821; 88305; A9270; J1885; J2250; J2704; J3010; J7120

== ENCOUNTER 2020-08-12 03:57 | Emergency (ER) | payer BC, SELFPAY ==
[2020-08-12 04:00] VITALS: BP 114/63; PULSE 82; RESP 15; TEMP 36.1; O2SAT 100
[2020-08-12 04:23] LABS: Add Urine Microscopic? YES; Appearance Urine Clear (Clear); Bilirubin Urine Negative (Negative); Color Urine Yellow (Yellow); Glucose Urine UA Negative (Negative); Ketones Urine Negative (Negative); Leukocyte Esterase Ur Negative LEU/UL (Negative); Mucus Urine Few /lpf; Nitrate Urine Negative (Negative); Protein Urine Negative (Negative); RBC Urine 0-2 /hpf (0-2); Specific Grav Ur 1.024 (1.001-1.035); Squamous Epithelial Cell Urine Many /hpf (Few); Urobilinogen Urine Negative mg/dL (<2.0)
[2020-08-12 04:27] LABS: Blood Urine Negative (Negative)
--- NOTE | 2020-08-12 04:31 | ED.GENADULT ---
HPI - General Adult General Chief complaint: Urogenital-Female Stated complaint: STI Check Time Seen by Provider: 08/12/20 04:30 Source: patient Mode of arrival: ambulatory Limitations: no limitations History of Present Illness HPI narrative: Pt here for STD check and to see if she's . Pt states she's been having white discharge. No other complaints. Related Data Allergies Allergy/AdvReac Type Severity Reaction Status Date / Time No Known Allergies Allergy Verified 03/02/20 10:47 Review of Systems Review of Systems: All systems reviewed & are unremarkable except as noted in HPI and below Constitutional: Constitutional: Denies body ache(s), Denies chills, Denies excessive sweating, Denies fatigue, Denies fever(s), Denies headache(s), Denies lethargy, Denies malaise, Denies weakness and Denies weight loss Eyes: Eyes: Denies blurry vision, Denies change in vision and Denies loss of vision ENT: Denies dizziness, Denies ear discharge, Denies headache(s), Denies lip swelling, Denies epistaxis, Denies nasal congestion, Denies neck pain, Denies throat swelling and Denies tongue swelling Cardiovascular: Cardiovascular: Denies chest pain, Denies chest pain at rest, Denies chest pain with activity, Denies diaphoresis, Denies rapid heart rate, Denies edema, Denies irregular heart rhythm, Denies lightheadedness, Denies palpitations, Denies dyspnea and Denies dyspnea on exertion Respiratory: Respiratory: Denies chest congestion, Denies cough, Denies hemoptysis, Denies dyspnea and Denies dyspnea on exertion Gastrointestinal: Gastrointestinal: Denies abdominal pain, Denies melena, Denies hematochezia, Denies diarrhea, Denies nausea, Denies vomiting and Denies hematemesis Musculoskeletal: Musculoskeletal: Denies abnormal gait, Denies deformity, Denies joint swelling, Denies limited range of motion, Denies neck pain and Denies numbness Neurologic: Denies Abnormal speech present, Denies abnormal gait, Denies confusion, Denies dizziness, Denies headache(s), Denies focal weakness, Denies loss of vision, Denies numbness, Denies Other visual disturbances, Denies Sensory deficit (Neuro) and Denies weakness Psychiatric: Psychiatric: Denies confusion, Denies depression, Denies auditory hallucinations, Denies homicidal ideation and Denies suicidal ideation Endocrine: Endocrine: Denies cold intolerance, Denies excessive sweating, Denies fatigue, Denies heat intolerance and Denies palpitations Hematologic/Lymphatic: Hematologic/Lymphatic: Denies easy bleeding and Denies easy bruising Allergic/Immunologic: Allergic/Immunologic: Denies lip swelling, Denies throat swelling and Denies tongue swelling PMFSH Past Medical History Medical History (Updated 08/12/20 @ 04:37 by Geraldo Luo MD) Healthy adult Miscarriage Social History Social History Smoking status: Never smoker Alcohol intake: current Substance use: never Gender identity (if verbalized by the patient): Female Exam Const: General: cooperative, healthy appearing, comfortable, no acute distress, well developed, alert and awake; No confusion Orientation/consciousness: oriented to person, oriented to place, oriented to time, patient oriented x3 and No confusion Limitations: no limitations HENMT: Head: normal to inspection, normocephalic and atraumatic Ears: hearing grossly normal bilaterally, TM normal on the right and TM normal on the left General nose exam: Normal external nose present, Normal nares present and No nasal discharge present Face and sinus: normal facial exam Mouth: Yes Normal oral and palatal mucosa present, Yes lip normal, Yes tongue normal and Yes oropharynx normal Throat: posterior oropharynx normal, tonsils normal and uvula midline Eyes: General: appearance normal, both eyes and all related structures Pupils: Equal, round and reactive pupils present EOM: EOMs intact bilaterally Neck: Neck: n
[2020-08-12 05:23] VITALS: BP 114/72; PULSE 89; RESP 18; TEMP 36.8; O2SAT 100
== END 2020-08-12 05:10 | disposition home or self-care (01) ==
PROVIDERS: Emergency Provider Emergency Medicine
DX: Z34.90 Encounter for supervision of normal pregnancy, unspecified, unspecified trimester (principal)
CPT/HCPCS: 81001; 81025; 87077; 87086; 87088; 99283

== ENCOUNTER 2022-08-18 17:16 | Emergency (ER) | payer BC, SELFPAY ==
[2022-08-18] VITALS (8 sets, daily range): BP systolic 98–120; BP diastolic 5–81; PULSE 68–94; RESP 16–18; TEMP 36.1–36.8; O2SAT 100
--- NOTE | ~2022-08-18 | CT_ITS ---
EXAMINATION: CT abdomen pelvis w con DATE: 08/18/2022 22:26 INDICATION: Epigastric and lower abdominal pain, nausea, vomiting and diarrhea TECHNIQUE: Computed tomography (CT) of the abdomen and pelvis was performed with 100 CC Omnipaque 350 intravenous contrast. Automated exposure control and iterative reconstruction technique were employe d. Exam dose: 309.69 mGy-cm total exam DLP. COMPARISON: 09/28/2018 CT pulmonary scan FINDINGS: The lung bases are clear. Normal heart size. No pericardial or pleural effusion. The liver, gallbladder, spleen, pancreas, bile ducts and pancreatic duct, and adrenal glands and kidn eys are normal. Normal caliber of the abdominal aorta. No intraperitoneal or retroperitoneal or pelvi c mass lesion or adenopathy or ascites. Involuting peripherally enhancing 2.2 cm left ovarian cyst. Uterus, adnexal areas and urinary bladder are otherwise unremarkable. No bowel obstruction, bowel wall thickening, pneumatosis or intraperitoneal free air. No evidence of appendicitis. There are some scattered small bowel air-fluid levels but no small bowel dilatation or wall thickening. Findings may be due to enteritis or mild adynamic ileus. Small fat-containing umbilical hernia. IMPRESSION: Scattered small bowel air-fluid levels without abnormal dilatation or wall thickening or obstruction; consider enteritis or mild adynamic ileus Involuting left ovarian cyst Reviewed, dictated and finalized at [facility]. Reviewed, dictated and finalized at [facility].
[2022-08-18 17:37] LABS: Basophils Percent Auto 0.6 % (0.2-1.2); Eosinophils Absolute Auto 0.1 K/mm3 (0-0.3); Eosinophils Percent Auto 1.5 % (0-4.4); Hematocrit 43.5 % (37.0-47.0); Immature Granulocyte Absolute 0.02 K/mm3 (0.00-0.031); Immature Granulocyte Percent A 0.3 % (0-0.5); Lymphocytes Absolute Auto 2.07 K/mm3 (0.9-3.2); Lymphocytes Percent Auto 28.7 % (18.3-44.2); Mean Corpuscular HGB Conc 32.2 g/dl (32-36); Mean Corpuscular Hemoglobin 29.2 pg (26-34); Mean Corpuscular Volume 90.6 fl (80-100); Mean Platelet Volume 10.8 fl (7.4-10.4); Monocytes Absolute Auto 0.6 K/mm3 (0.1-0.6); Monocytes Percent Auto 8.3 % (2.6-8.5); Neutrophils Absolute Auto 4.4 K/mm3 (1.3-6.7); Neutrophils Percent Auto 60.6 % (45.5-73.1); Platelet Count Result 253 k/mm3 (150-375); Red Cell Distribution Width 14.9 % (11.5-14.5); White Blood Count 7.2 K/mm3 (4.5-10.0)
[2022-08-18 18:04] LABS: Alanine Aminotransferase 25 U/L (6-35); Albumin Level 4.5 g/dL (3.5-5.1); Alkaline Phosphatase 78 U/L (38-126); Anion Gap 11 mmol/L (8-16); Aspartate Amino Transferase 28 U/L (14-36); Bilirubin,Total 0.5 mg/dL (0.2-1.3); Blood Urea Nitrogen 14 mg/dL (7-17); Calcium 8.5 mg/dL (8.4-10.2); Carbon Dioxide 25 mmol/L (22-30); Chloride 103 mmol/L (98-107); Estimated CRCL calculation 75 ml/min; Estimated Glomerular Filt Rate > 60; Glucose 98 mg/dL (65-110); Lipase 68 U/L (23-300); Potassium 3.5 mmol/L (3.4-5.0); Sodium 139 mmol/L (137-145)
[2022-08-18 18:29] LABS: Add Urine Microscopic? YES; Appearance Urine Cloudy (Clear); Bilirubin Urine Negative (Negative); Blood Urine Negative (Negative); Color Urine Yellow (Yellow); Glucose Urine UA Negative (Negative); Ketones Urine Negative (Negative); Leukocyte Esterase Ur Trace LEU/UL (Negative); Mucus Urine Heavy /lpf; Nitrate Urine Negative (Negative); Protein Urine 1+ mg/dL (Negative); Specific Grav Ur 1.032 (1.001-1.035); Squamous Epithelial Cell Urine Moderate /hpf (Few)
--- NOTE | 2022-08-18 21:38 | ED.NAVMDI ---
HPI - Nausea/Vomiting/Diarrhea General Chief complaint: Nausea/Vomiting/Diarrhea Stated complaint: N/V/D Time Seen by Provider: 08/18/22 21:06 Source: patient Mode of arrival: ambulatory Limitations: no limitations History of Present Illness HPI Narrative: Patient is a 27-year-old female who presents the ED with report of nausea and vomiting. Patient reports having nausea, vomiting, diarrhea for the past 2 days. She states anytime she eats or drinks anything, it comes out one end. She also reports having diffuse abdominal pain. She took a BC powder today, but has not tried anything further for her pain. She also reports having abnormal vaginal discharge today. She has concern for STDs. She denies any fever, cough, cold symptoms, dysuria, hematuria, vaginal bleeding, rectal bleeding. Related Data Home Medications Medication Instructions Recorded Confirmed medroxyprogesterone 150 mg/mL 150 mg IM [id number] 11/24/21 11/24/21 intramuscular syringe (Depo-Provera) Allergies Allergy/AdvReac Type Severity Reaction Status Date / Time No Known Allergies Allergy Verified 11/24/21 15:14 Review of Systems Review of Systems: CONSTITUTIONAL: Denies fever, chills, or sweats. ENT: Denies rhinorrhea, congestion, sore throat. CARDIOVASCULAR: Denies chest pain. RESPIRATORY: Denies cough or dyspnea. GASTROINTESTINAL: Reports diffuse abdominal pain, nausea, vomiting, and diarrhea. Denies rectal bleeding. GENITOURINARY: Reports vaginal discharge. Denies vaginal bleeding, dysuria or hematuria. All systems reviewed & are unremarkable except as noted in HPI and below PMFSH Past Medical History Medical History Miscarriage Surgical History Surgical History (Updated 08/18/22 @ 21:39 by Laury Mercado PA-C) No pertinent past surgical history Social History Social History Smoking status: Never smoker Alcohol intake: current Substance use: never Gender identity (if verbalized by the patient): Female Exam Narrative: GENERAL: Well appearing, well-nourished, non-toxic, in no acute distress. HEAD: Normocephalic, atraumatic. NECK: Supple. No adenopathy, no masses. RESPIRATORY: Airway patent, respirations nonlabored. Clear to auscultation bilaterally, no rales, rhonchi, wheezing. CARDIOVASCULAR: Regular rate and rhythm without murmurs, rubs, or gallops. Peripheral pulses 2+ and equal bilaterally. ABDOMINAL: Soft, diffuse nonspecific tenderness to palpation. Nondistended, no hepatosplenomegaly. Normoactive BS. PELVIC: Normal external genitalia. Mild amount of white milky vaginal discharge in vaginal vault. Mild odor to discharge. No bleeding present. No significant CMT. MUSCULOSKELETAL: Moves all extremities. Strength/ROM intact without gross deformities. SKIN: Warm, dry, normal color. No rashes. NEURO: A&O X3. Speech clear. Cranial nerves II-XII grossly intact. Steady gait. No ataxic movements. PSYCHIATRIC: Appropriate mood and affect. Normal interaction. Course Vital Signs Vital signs: Vital Signs Temperature 97.0 F L 08/18/22 17:19 Pulse Rate 94 08/18/22 17:19 Respiratory Rate 18 08/18/22 17:19 Blood Pressure 120/81 08/18/22 17:19 Pulse Oximetry 100 08/18/22 17:19 Oxygen Delivery Room Air 08/18/22 17:19 Temperature 97.3 F L 08/18/22 23:00 Pulse Rate 83 08/18/22 23:04 Respiratory Rate 16 08/18/22 23:00 Blood Pressure 98/60 L 08/18/22 23:04 Pulse Oximetry 100 08/18/22 23:00 Oxygen Delivery Room Air 08/18/22 17:19 MDM - Nausea/Vomiting/Diarrhea MDM Narrative Medical decision making narrative: Patient presented to ED with N/V/D, diffuse abdominal pain, vaginal discharge. Patient's vitals stable upon arrival. Labs unremarkable. No leukocytosis, anemia, electrolyte abnormality. UA with possible signs of infection versus contamination, trace leuk
[2022-08-18] MEDS: SODIUM CHLORIDE 0.9% IV 1,000 ML 999 ML IV CONT (23:07)
[2022-08-18] MEDS: metroNIDAZOLE 250 MG TABLET 500 MG PO (23:39)
[2022-08-18] MEDS: LIDOCAINE HCL 1% PF 30 ML VIAL (23:39)
[2022-08-18] MEDS: DOXYCYCLINE HYCLATE 100 MG TABLET PO (23:40)
[2022-08-18] MEDS: cefTRIAXone 1 GM VIAL 0.5 GM IM (23:40)
== END 2022-08-19 00:01 | disposition home or self-care (01) ==
PROVIDERS: Emergency Medicine; Physician Assistant; Emergency Provider Emergency Medicine
DX: K52.9 Noninfective gastroenteritis and colitis, unspecified (principal); N76.0 Acute vaginitis; Z11.3 Encounter for screening for infections with a predominantly sexual mode of transmission; N83.202 Unspecified ovarian cyst, left side
CPT/HCPCS: 36415; 74177; 80053; 81001; 81025; 83690; 85025; 87070; 87086; 87088; 87491; 87591; 87808; 96365; 96372; 99284; A9270; J0131; J0696; J7030; Q9967